=== PATIENT | male | born 1965 | race Caucasian/White ===

== ENCOUNTER 2024-02-26 10:05 | Emergency (ER) | payer MEDICAID ==
[~2024-02-26] VITALS: Ht 160 cm; Wt 104.3 kg
[2024-02-26 10:15] VITALS: O2SAT 93
[2024-02-26] MEDS: AMOXICILLIN/POTASSIUM CLAVULANATE 875/125MG TAB PO ONE (12:31)
[2024-02-26] MEDS ORDERED: AMOX1TAB16 MT (14:01)
[2024-02-26 14:22] VITALS: BP 134/81; PULSE 67; RESP 18; TEMP 36.66960; O2SAT 93
== END 2024-02-26 14:43 | disposition home or self-care (01) ==
LOC: ER 10:05
DX: S02.19XA Other fracture of base of skull, initial encounter for closed fracture (principal); W13.2XXA Fall from, out of or through roof, initial encounter; Y93.89 Activity, other specified; Y92.89 Other specified places as the place of occurrence of the external cause; Y99.8 Other external cause status
CPT/HCPCS: 70486; 99284